=== PATIENT | female | born 1960 | race Caucasian/White ===

== ENCOUNTER 2020-03-13 17:42 | Emergency (ER) | payer OTHER ==
[~2020-03-13] VITALS: Ht 162.6 cm; Wt 104.3 kg
[2020-03-13 18:16] LABS: BASOPHILS ABSOLUTE AUTO 0.05 K/mm3 (0.00-0.23); BASOPHILS PERCENT AUTO 1 % (0-2); EOSINOPHILS ABSOLUTE AUTO 0.22 K/mm3 (0.00-0.68); EOSINOPHILS PERCENT AUTO 3 % (0-6); Hematocrit 37.5 % (33.0-51.0); Hemoglobin 12.3 g/dL (11.5-16.0); IMMATURE GRAN ABSOLUTE AUTO 0.01 K/mm3 (0.00-0.10); IMMATURE GRAN PERCENT AUTO 0 % (0-1); LYMPHOCYTES ABSOLUTE AUTO 2.48 K/mm3 (0.84-5.20); LYMPHOCYTES PERCENT AUTO 34 % (21-46); MONOCYTES ABSOLUTE AUTO 0.59 K/mm3 (0.16-1.47); MONOCYTES PERCENT AUTO 8 % (4-13); Mean Corpuscular HGB 30.1 pg (26.0-34.0); Mean Corpuscular HGB Conc 32.8 g/dL (31.5-36.5); Mean Corpuscular Volume 92 fL (80-100); Mean Platelet Volume 9.9 fL (9.1-12.4); NEUTROPHILS PERCENT AUTO 54 % (41-73); Platelet Count 282 K/mm3 (150-400); RDW Coefficient Variation 11.8 % (11.7-14.2); RDW Standard Deviation 39.7 fL (35.1-46.3); Red Blood Cell Count 4.08 M/mm3 (3.80-5.20); White Blood Cell Count 7.25 K/mm3 (4.00-11.30)
[2020-03-13] MEDS ORDERED: EUTHYROX50 MC1 (18:32)
[2020-03-13] MEDS ORDERED: LISI20 PO (18:32)
[2020-03-13] MEDS ORDERED: METF500 PO (18:33)
[2020-03-13] MEDS ORDERED: ATOR20 PO (18:33)
[2020-03-13 18:37] LABS: Alanine Aminotransfer (ALT/SGP 41 U/L (12-78); Albumin/Globulin Ratio 1.5 (0.8-1.8); Alk Phos 51 U/L (50-136); Anion Gap 6 mmol/L (6-16); Aspartate Aminotrans (AST/SGOT 13 U/L (12-37); Bilirubin, Total 0.3 mg/dL (0.1-1.0); Blood Urea Nitrogen 17 mg/dL (8-24); Bun/Creatinine Ratio 34.3 (12.0-20.0); CO2, Blood 26 mmol/L (21-32); Calcium, Blood 8.9 mg/dL (8.5-10.1); Chloride, Blood 108 mmol/L (98-108); Globulin, Blood 2.7 g/dL (2.2-4.0); Glomerular Filtration Rate >60 (60-); Glucose, Blood 112 mg/dL (70-99); Potassium, Blood 3.6 mmol/L (3.5-5.5); Sodium, Blood 140 mmol/L (136-145); Total Protein, Blood 6.7 g/dL (6.4-8.2); Troponin I <0.015 ng/mL (0.000-0.040)
[2020-06-03] MEDS ORDERED: OMEP20ER (15:20)
[2020-06-03] MEDS ORDERED: ALBU90OI (15:21)
[2020-06-03] MEDS ORDERED: FLUT1DIS5 (15:21)
== END 2020-03-13 20:20 | disposition home or self-care (01) ==
LOC: ER 17:42
PROVIDERS: Physician Assistant
DX: M94.0 Chondrocostal junction syndrome [Tietze] (principal); Z79.84 Long term (current) use of oral hypoglycemic drugs; Z79.899 Other long term (current) drug therapy; Z88.2 Allergy status to sulfonamides
CPT/HCPCS: 36415; 71046; 80053; 84484; 85025; 93005; 93010; 99284-25

== ENCOUNTER 2020-06-10 12:09 | Day surgery (SDC) | payer OTHER ==
[~2020-06-10] VITALS: Ht 162.6 cm; Wt 95.6 kg
[~2020-06-10 12:09] MED LIST: ALBU90OI; ATOR20 PO; EUTHYROX50 MC1; FLUT1DIS5; LISI20 PO; METF500 PO; OMEP20ER
== END 2020-06-10 15:05 | disposition home or self-care (01) ==
LOC: ORSCSDS 12:09
PROVIDERS: Student in an Organized Health Care Education/Training Program
PROC: 0DBL8ZX Excision of Transverse Colon, Via Natural or Artificial Opening Endoscopic, Diagnostic (ICD-10-PCS; principal; 2020-06-10 13:30)
PROC: 0DBM8ZX Excision of Descending Colon, Via Natural or Artificial Opening Endoscopic, Diagnostic (ICD-10-PCS; principal; 2020-06-10 13:30)
PROC: 0DBH8ZX Excision of Cecum, Via Natural or Artificial Opening Endoscopic, Diagnostic (ICD-10-PCS; principal; 2020-06-10 13:30)
PROC: 0DBN8ZX Excision of Sigmoid Colon, Via Natural or Artificial Opening Endoscopic, Diagnostic (ICD-10-PCS; principal; 2020-06-10 13:30)
PROC: 0DBK8ZX Excision of Ascending Colon, Via Natural or Artificial Opening Endoscopic, Diagnostic (ICD-10-PCS; principal; 2020-06-10 13:30)
DX: Z12.11 Encounter for screening for malignant neoplasm of colon (principal); Z86.010 Personal history of colon polyps; D12.0 Benign neoplasm of cecum; D12.2 Benign neoplasm of ascending colon; D12.4 Benign neoplasm of descending colon; D12.3 Benign neoplasm of transverse colon; D12.5 Benign neoplasm of sigmoid colon; K57.30 Diverticulosis of large intestine without perforation or abscess without bleeding; K64.8 Other hemorrhoids; K64.4 Residual hemorrhoidal skin tags; E11.9 Type 2 diabetes mellitus without complications; Z79.84 Long term (current) use of oral hypoglycemic drugs; I10 Essential (primary) hypertension; J44.9 Chronic obstructive pulmonary disease, unspecified; G47.33 Obstructive sleep apnea (adult) (pediatric); E03.9 Hypothyroidism, unspecified; E66.01 Morbid (severe) obesity due to excess calories; Z68.36 Body mass index [BMI] 36.0-36.9, adult; Z79.899 Other long term (current) drug therapy
CPT/HCPCS: 82947; 88305; J2405; J2704; J7120

== ENCOUNTER → 2023-03-22 | Outpatient (CLI) | payer OTHER ==
[2023-03-25 17:37] LABS: HOURS COLLECTED 24 hr; TOTAL PROTEIN,URINE-PER VOLUME 6 mg/dL; TOTAL VOLUME 1800 mL; URINE 24 HOUR PROTEIN 108 mg/d (40-150)
== END ==
LOC: LAB SHORT 07:00 → LAB 07:00 → LAB FUT 03-09 10:55 → EDSTATUS 03-09 10:55
PROVIDERS: Physician Assistant
DX: D80.1 Nonfamilial hypogammaglobulinemia (principal)
CPT/HCPCS: 84156; 84166; 86335

== ENCOUNTER 2023-12-06 06:22 | Day surgery (SDC) | payer OTHER ==
[~2023-12-06] VITALS: Ht 160 cm; Wt 98.3 kg
[2023-12-06] MEDS ORDERED: CeFAZolin Sodium 2,000 MG VIAL ONE (06:39)
[2023-12-06] MEDS ORDERED: NS 50 ML IV ONE (06:39)
[2023-12-06] MEDS ORDERED: JARDIANCE10 MG PO (06:53)
[2023-12-06] MEDS ORDERED: Lactated Ringer's 1,000 ML IV ONE (07:07)
[2023-12-06] MEDS ORDERED: FentaNYL Citrate 50 MCG/ML 2 ML Injection ONE (07:18)
[2023-12-06] MEDS ORDERED: propofoL 20 ML IV ONE (07:18)
[2023-12-06] MEDS ORDERED: Dexamethasone Sod Phos 10 MG/ML 1ML VIAL ONE (07:43)
[2023-12-06] MEDS ORDERED: Ondansetron HCl 2 MG / ML 2ML Vial ONE ×2 (07:43→09:47)
--- NOTE | 2023-12-06 07:49 | NUR ---
12/06/23 0749 LAW MINAYA PT REPORTS HX OF DRUG ABUSE HX MANY YEARS AGO. ATTEMPTED TO PLACE PERIPHERAL IV ACCESS ON NON-OPERATIVE ARM (RIGHT SIDE). 1ST ATTEMPT INFILTRATED IN R WRIST, SECOND ATTEMPT INITIALLY SUCCESSFUL, OR CIRCULATING NURSE NOTICED THIS INFILTRATED WHEN PATIENT WAS GOING TO BE TAKEN TO THE OR. NEW 22 G IV PLACED TO R UPPER FOREARM. FLUSHED, INFUSING WITHOUT EXCESSIVE REDNESS OR SWELLING. PT TO OR.
[2023-12-06] MEDS ORDERED: SuccINYLCHOLINE Chloride 100 MG/5 ML 5MLSYR ONE (08:07)
[2023-12-06] MEDS ORDERED: HYDROmorphone HCl/Pf 1MG SYR ONE ×2 (08:07→08:13)
[2023-12-06] MEDS ORDERED: Phenylephrine HCl 100 MCG/ML-NS 10MLSYR (1MG/10ML) ONE (08:07)
[2023-12-06] MEDS ORDERED: Bupivacaine 0.5% HCl 5 MG/ML 30MLVIAL INJ ONE ×2 (08:11)
[2023-12-06] MEDS ORDERED: EPINEPhrine HCl 1 MG/ML 1ML Amp XX ONE ×2 (08:11)
[2023-12-06] MEDS ORDERED: Labetalol HCL 5 MG/ML 4ML Injection (Single Dose) ONE (08:58)
[2023-12-06 10:05] VITALS: BP 119/61
[2023-12-06] MEDS ORDERED: Scopolamine Hydrobromide Patch ONE (10:26)
[2023-12-06] MEDS ORDERED: Droperidol 5 mg/2 ml Vial ONE (10:36)
[2023-12-06] MEDS ORDERED: Metoclopramide HCl 5MG / ML 2ML Vial ONE (10:38)
--- NOTE | 2023-12-06 11:15 | NUR ---
12/06/23 1115 FabianLeeanne PT HAD SEVERAL BOUTS OF N/V. GAVE HER IV ZOFRAN, SHE WAS STILL HAVING VOMITING 15 MINUTES LATER. GOT HER AN ORDER FOR SCOPALAMINE PATCH FROM ANESTHESIA. HE DID NOT NEED US TO HAVE ANY OTHER ORDERS CARRIED OUT AT THIS TIME. PATCH PUT BEHIND LEFT EAR WITH INSTRUCTIONS. PT HAD MORE N/V AND ANESTHESIA THEN GAVE AN ORDER FOR REGALN THAT WAS GIVEN IV. PT STARTED TO FEEL IMPROVEMENT. DAUGHTER UNIQUE DRESSED HER AND WE GOT HER INTO W/C AND TO CAR. PT FELT HER N/V WAS FADING FAST ONCE OUTSIDE GOING TO CAR. NO ORDERS FOR BLOOD SUGAR CHECK. SHE WAS ENCOURAGED TO SLEEP WITH HEAD ELEVATED TONIGHT DUE TO EARLIER DROPPING SAT'S TO LOW 90'S THOUGH WHEN AWOKEN SHE COULD GET THEM RIGHT BACK UP TO HIGH 90'S.
== END 2023-12-06 11:00 | disposition home or self-care (01) ==
LOC: ORSCSDS 06:22
PROVIDERS: Orthopaedic Surgery
PROC: 0RQT0ZZ Repair Left Carpometacarpal Joint, Open Approach (ICD-10-PCS; principal; 2023-12-06 07:30)
DX: M18.12 Unilateral primary osteoarthritis of first carpometacarpal joint, left hand (principal); I10 Essential (primary) hypertension; E11.9 Type 2 diabetes mellitus without complications; G47.33 Obstructive sleep apnea (adult) (pediatric); J44.9 Chronic obstructive pulmonary disease, unspecified; F17.210 Nicotine dependence, cigarettes, uncomplicated; Z79.84 Long term (current) use of oral hypoglycemic drugs; Z79.899 Other long term (current) drug therapy; E66.9 Obesity, unspecified; Z68.38 Body mass index [BMI] 38.0-38.9, adult
CPT/HCPCS: 82947; A9270; J0171; J0330; J0690; J1100; J1170; J1171; J1790; J2371; J2405; J2704; J2765; J3010; J7120